=== PATIENT | female | born 1945 | race American Indian/Alaskan Native ===

== ENCOUNTER 2018-07-17 14:04 | Observation (INO) | payer OTHER ==
--- NOTE | 2018-07-17 17:18 | C.PDOC ---
History Of Present Illness Patient is a 72 year old female, with a PMHx of HTN, HLD, and appendectomy, who presents to the ED c/o intermittent dizziness described as "lightheadedness" for the past 4 days. Patient states that her dizziness is worse when she stands and has had multiple associated near-syncopal episodes. She denies any vertigo. She denies any constant dizziness. She notes she was told her by PMD Dr. Ryan to come to the ED for likely admission. She denies any vertigo, CP, leg swelling, history of blood clots, abdominal pain, back pain, fever, chills, rashes, neck stiffness, or head trauma. Time Seen by Provider: 07/17/18 17:17 Chief Complaint (Nursing): Medical Clearance History Per: Patient History/Exam Limitations: no limitations Onset/Duration Of Symptoms: Days (4) Current Symptoms Are (Timing): Still Present Recent travel outside of the [place]: No Additional History Per: Patient Past Medical History Reviewed: Historical Data, Nursing Documentation, Vital Signs Vital Signs: Last Vital Signs Temp 98 F 07/17/18 14:29 Pulse 81 07/17/18 14:29 Resp 18 07/17/18 14:29 BP 143/83 07/17/18 14:29 Pulse Ox 98 07/17/18 14:29 - Medical History PMH: HTN, Hypercholesterolemia Surgical History: Appendectomy Family History: States: No Known Family Hx - Social History Hx Alcohol Use: No Hx Substance Use: No - Immunization History Hx Tetanus Toxoid Vaccination: No Hx Influenza Vaccination: Yes Review Of Systems Constitutional: Negative for: Fever, Chills, Weakness, Malaise, Weight loss Eyes: Negative for: Pain, Vision Change, Conjunctivae Inflammation, Eyelid Inflammation ENT: Negative for: Ear Pain, Ear Discharge, Nose Pain, Nose Discharge, Nose Congestion, Mouth Pain, Mouth Swelling, Throat Pain Cardiovascular: Positive for: Light Headedness. Negative for: Chest Pain, Palpitations Respiratory: Negative for: Cough, Shortness of Breath, Pleuritic Pain Gastrointestinal: Negative for: Nausea, Abdominal Pain, Constipation, Melena Genitourinary: Negative for: Dysuria, Frequency, Incontinence, Hematuria Musculoskeletal: Negative for: Neck Pain (stiffness), Back Pain, Leg Pain (leg swelling) Skin: Negative for: Rash Neurological: Positive for: Dizziness, Other (near syncopal episodes ). Negative for: Weakness, Numbness, Incoordination, Confusion, Seizures, Altered Mental Status, Headache Physical Exam - Physical Exam Appears: Well, Non-toxic, No Acute Distress Skin: Warm, Dry Head: Normacephalic Eye(s): bilateral: Normal Inspection, PERRL, EOMI Ear(s): Bilateral: Normal Nose: Normal Oral Mucosa: Moist Tongue: No Other (trauma) Lips: Normal Appearing Throat: Normal, No Erythema Neck: Trachea Midline, Supple, Other (No meningeal signs- negative kernig's and brudzinskis) Lymphatic: Normal Exam, No Adenopathy Chest: Symmetrical Cardiovascular: Rhythm Regular, No Friction Rub Respiratory: No Rales, No Rhonchi, No Wheezing Gastrointestinal/Abdominal: Soft, No Tenderness, No Distention Back: Normal Inspection, No CVA Tenderness, No Vertebral Tenderness Extremity: Normal ROM, No Tenderness, No Pedal Edema, No Swelling Extremity: Bilateral: Normal Color And Temperature Pulses: Left Dorsalis Pedis: Normal, Right Dorsalis Pedis: Normal Neurological/Psych: Oriented x3, Normal Speech, Normal Cognition, Other (MAEW) ED Course And Treatment - Laboratory Results Result Diagrams: 07/17/18 17:58 07/17/18 17:58 ECG Rhythm: Sinus Rhythm Interpretation Of ECG: No-STEMI Rate From EC O2 Sat by Pulse Oximetry: 98 (on RA) Pulse Ox Interpretation: Normal - CT Scan/US CAT Head Other Rad Studies (CT/US): Read By Radiologist, Radiology Report Reviewed CT/US Interpretation: Date of service: 07/17/2018. PROCEDURE: CT HEAD WITHOUT CONTRAST. HISTORY: lightheaded, syncope. COMPARISON: None available. TECHNIQUE: Axial computed tomography images were obtained through the head/brain without intravenous contrast. Radiation dose: Total exam DLP = 1112.34 mGy-cm. This CT exam was performed using one or more of the following dose reduction techniques: Automated exposure control, adjustment of the mA and/or kV according to patient size, and/or use of iterative reconstruction technique. FINDINGS: HEMORRHAGE: No intracranial hemorrhage. BRAIN: No mass effect or edema. Intracranial atherosclerotic calcifications. The lugo-white matter differentiation appears intact. Please note that MRI with diffusion imaging is more sensitive in the detection of acute ischemic event. VENTRICLES: No hydrocephalus. CALVARIUM: Unremarkable. PARANASAL SINUSES: Unremarkable as visualized. No significant inflammatory changes. MASTOID AIR CELLS: Unremarkable as visualized. No inflammatory changes. OTHER FINDINGS: None. IMPRESSION: No acute intracranial pathology identified. Medical Decision Making Medical Decision Making: Patient is a 72 year old female, with a PMHx of HTN, HLD, and appendectomy, who presents to the ED c/o intermittent dizziness described as "lightheadedness" for the past 4 days. No meningeal signs. No apparent neuro abnl while pt is in bed. Normal finger to nose. No chest pain. No trauma or fall noted. No headache, nausea or vomiting. Plan: CAT Head EKG Labs CXR IV Fluids Urinalysis Cardiogenic vs. neurogenic EK, NSR, No stemi 2025 labs, imaging unremarkable paged Dr. Ryan for admission pt in [facility] 2047 appreciate consult w/ Dr. Ryan: to admit to his service Disposition - Disposition Disposition Time: 20:26 Condition: STABLE Forms: [facility] (Ethiopian) - Clinical Impression Clinical Impression: Syncope - Scribe Statement The provider has reviewed the documentation as recorded by the Graciela Atwood All medical record entries made by the Graciela were at my direction and personally dictated by me. I have reviewed the chart and agree that the record accurately reflects my personal performance of the history, physical exam, medical decision making, and the department course for this patient. I have also personally directed, reviewed, and agree with the discharge instructions and disposition.
[2018-07-17] MEDS: Sodium Chloride 0.9% 1,000 ML IV SCH (17:58)
[2018-07-17] MEDS ORDERED: Sodium Chloride 0.9% 1,000 ML ONE (17:59)
[2018-07-17 18:03] LABS: BASO % 1.1 % (0.0-2.0); EOS # 0.1 K/uL (0.0-0.7); EOS % 1.4 % (0.0-4.0); HEMOGLOBIN 12.3 g/dL (11.0-16.0); LYMPH # 1.6 K/uL (1.0-4.3); LYMPH % 41.1 % (20.0-40.0); MEAN CORPUSCULAR HEMOGLOBIN 31.6 pg (27.0-31.0); MEAN PLATELET VOLUME 9.5 fL (7.2-11.7); MONO # 0.4 K/uL (0.0-0.8); MONO % 10.3 % (0.0-10.0); NEUT # 1.8 K/uL (1.8-7.0); NEUT % 46.1 % (50.0-75.0); NRBC % 0.2 % (0.0-2.0); RBC 3.89 Mil/uL (3.80-5.20); RED CELL DISTRIBUTION WIDTH 14.7 % (11.5-14.5)
[2018-07-17 18:22] LABS: ALB/GLOB RATIO 1.4 (1.0-2.1); ALBUMIN 4.3 g/dL (3.5-5.0); ALT/SGPT 17 U/L (9-52); AST/SGOT 31 U/L (14-36); BLOOD UREA NITROGEN 12 mg/dL (7-17); CALCIUM 9.6 mg/dl (8.6-10.4); GFR NON-AFRICAN AMERICAN > 60
--- NOTE | 2018-07-17 18:28 | CT ---
Date of service: 07/17/2018 PROCEDURE: CT HEAD WITHOUT CONTRAST. HISTORY: lightheaded, syncope COMPARISON: None available. TECHNIQUE: Axial computed tomography images were obtained through the head/brain without intravenous contrast. Radiation dose: Total exam DLP = 1112.34 mGy-cm. This CT exam was performed using one or more of the following dose reduction techniques: Automated exposure control, adjustment of the mA and/or kV according to patient size, and/or use of iterative reconstruction technique. FINDINGS: HEMORRHAGE: No intracranial hemorrhage. BRAIN: No mass effect or edema. Intracranial atherosclerotic calcifications. The lugo-white matter differentiation appears intact. Please note that MRI with diffusion imaging is more sensitive in the detection of acute ischemic event. VENTRICLES: No hydrocephalus. CALVARIUM: Unremarkable. PARANASAL SINUSES: Unremarkable as visualized. No significant inflammatory changes. MASTOID AIR CELLS: Unremarkable as visualized. No inflammatory changes. OTHER FINDINGS: None. IMPRESSION: No acute intracranial pathology identified.
[2018-07-17 19:58] LABS: SQUAMOUS EPITHIAL 11 /hpf (0-5); URINE BILIRUBIN NEGATIVE (NEGATIVE); URINE BLOOD NEGATIVE (NEGATIVE); URINE CLARITY Hazy (Clear); URINE COLOR Yellow (YELLOW); URINE GLUCOSE (UA) NORMAL (Normal); URINE LEUKOCYTE ESTERASE NEG Leu/uL (Negative); URINE PROTEIN NEGATIVE (NEGATIVE)
--- NOTE | 2018-07-17 22:39 | CP.PCM.HP ---
Present on Admission - Present on Admission Any Indicators Present on Admission: No Past Patient History - Past Social History Smoking Status: Never Smoked - CARDIAC Hx Hypercholesterolemia: Yes Hx Hypertension: Yes - NEUROLOGICAL Hx Neurological Disorder: Yes Hx Vertigo: Yes - PSYCHIATRIC Hx Substance Use: No - SURGICAL HISTORY Hx Appendectomy: Yes Meds Allergies/Adverse Reactions: Allergies Allergy/AdvReac Type Severity Reaction Status Date / Time No Known Allergies Allergy Verified 07/17/18 14:36 Results - Vital Signs Recent Vital Signs: Last Vital Signs Temp 98 F 07/17/18 14:29 Pulse 81 07/17/18 14:29 Resp 18 07/17/18 14:29 BP 143/83 07/17/18 14:29 Pulse Ox 98 07/17/18 20:48 - Labs Result Diagrams: 07/17/18 17:58 07/17/18 17:58 Labs: Laboratory Results - last 24 hr 07/17/18 07/17/18 07/17/18 17:58 17:58 19:11 WBC 4.0 L RBC 3.89 Hgb 12.3 Hct 36.1 MCV 93.0 MCH 31.6 H MCHC 34.0 RDW 14.7 H Plt Count 183 MPV 9.5 Neut % (Auto) 46.1 L Lymph % (Auto) 41.[address] [place] % (Auto) 10.3 H Eos % (Auto) 1.4 Baso % (Auto) 1.1 Neut # (Auto) 1.8 Lymph # (Auto) 1.6 [place] # (Auto) 0.4 Eos # (Auto) 0.1 Baso # (Auto) 0.0 Sodium 137 Potassium 3.9 Chloride 103 Carbon Dioxide 27 Anion Gap 11 BUN 12 Creatinine 0.9 Est GFR ( Amer) > 60 Est GFR (Non-Af Amer) > 60 Random Glucose 115 H Calcium 9.6 Total Bilirubin 0.4 AST 31 ALT 17 Alkaline Phosphatase 71 Troponin I < 0.0120 Total Protein 7.2 Albumin 4.3 Globulin 3.0 Albumin/Globulin Ratio 1.4 Urine Color Yellow Urine Clarity Hazy Urine pH 6.0 Ur Specific [place] 1.021 Urine Protein Negative Urine Glucose (UA) Normal Urine Ketones Negative Urine Blood Negative Urine Nitrate Negative Urine Bilirubin Negative Urine Urobilinogen 2.0 H Ur Leukocyte Esterase Neg Urine WBC (Auto) 2 Urine RBC (Auto) 3 Ur Squamous Epith Cells 11 H
[2018-07-18] MEDS: Sodium Chloride 0.9% 1,000 ML IV SCH ×2 (04:50→15:59)
[2018-07-18 05:55] LABS: CK-MB 1.02 ng/mL (0.0-3.38)
--- NOTE | 2018-07-18 07:15 | CP.PCM.CON ---
History of Present Illness - History of Present Illness History of Present Illness: CONSULTATION DICTATED RECURRENT LIGHTHEADED AND [place]AXIA R/O CENTRAL PATHOLOGY BRAIN VS NECK MRI BRAIN CATOTID/EEG ANTIPLATELETS FALL PRECATION Past Patient History - Past Social History Smoking Status: Never Smoked - CARDIAC Hx Hypercholesterolemia: Yes Hx Hypertension: Yes - NEUROLOGICAL Hx Neurological Disorder: Yes Hx Vertigo: Yes - PSYCHIATRIC Hx Substance Use: No - SURGICAL HISTORY Hx Appendectomy: Yes Meds Allergies/Adverse Reactions: Allergies Allergy/AdvReac Type Severity Reaction Status Date / Time No Known Allergies Allergy Verified 07/17/18 14:36 - Medications Medications: Current Medications Clopidogrel Bisulfate (Plavix) 75 mg PO DAILY [facility] Enoxaparin Sodium (Lovenox) 40 mg SC DAILY [facility] Sodium Chloride (Sodium Chloride 0.9%) 1,000 mls @ 100 mls/hr IV .Q10H MICHELLE Last Admin: 07/18/18 04:50 Dose: 100 mls/hr Losartan Potassium (Cozaar) 50 mg PO DAILY [facility] Meclizine HCl (Antivert) 25 mg PO Q8 MICHELLE Rosuvastatin Calcium (Crestor) 10 mg PO HS [facility] Results - Vital Signs Recent Vital Signs: Last Vital Signs Temp 98 F 07/17/18 14:29 Pulse 80 07/18/18 04:34 Resp 14 07/18/18 04:34 BP 154/74 H 07/18/18 04:34 Pulse Ox 100 07/18/18 04:34 - Labs Result Diagrams: 07/17/18 17:58 07/17/18 17:58 Labs: Laboratory Results - last 24 hr 07/17/18 07/17/18 07/17/18 17:58 17:58 19:11 WBC 4.0 L RBC 3.89 Hgb 12.3 Hct 36.1 MCV 93.0 MCH 31.6 H MCHC 34.0 RDW 14.7 H Plt Count 183 MPV 9.5 Neut % (Auto) 46.1 L Lymph % (Auto) 41.1 H [place] % (Auto) 10.3 H Eos % (Auto) 1.4 Baso % (Auto) 1.1 Neut # (Auto) 1.8 Lymph # (Auto) 1.6 [place] # (Auto) 0.4 Eos # (Auto) 0.1 Baso # (Auto) 0.0 Sodium 137 Potassium 3.9 Chloride 103 Carbon Dioxide 27 Anion Gap 11 BUN 12 Creatinine 0.9 Est GFR ( Amer) > 60 Est GFR (Non-Af Amer) > 60 Random Glucose 115 H Calcium 9.6 Total Bilirubin 0.4 AST 31 ALT 17 Alkaline Phosphatase 71 Total Creatine Kinase CK-MB (Mass) Troponin I < 0.0120 Total Protein 7.2 Albumin 4.3 Globulin 3.0 Albumin/Globulin Ratio 1.4 Urine Color Yellow Urine Clarity Hazy Urine pH 6.0 Ur Specific [place] 1.021 Urine Protein Negative Urine Glucose (UA) Normal Urine Ketones Negative Urine Blood Negative Urine Nitrate Negative Urine Bilirubin Negative Urine Urobilinogen 2.0 H Ur Leukocyte Esterase Neg Urine WBC (Auto) 2 Urine RBC (Auto) 3 Ur Squamous Epith Cells 11 H 07/18/18 05:27 WBC RBC Hgb Hct MCV MCH MCHC RDW Plt Count MPV Neut % (Auto) Lymph % (Auto) [place] % (Auto) Eos % (Auto) Baso % (Auto) Neut # (Auto) Lymph # (Auto) [place] # (Auto) Eos # (Auto) Baso # (Auto) Sodium Potassium Chloride Carbon Dioxide Anion Gap BUN Creatinine Est GFR ( Amer) Est GFR (Non-Af Amer) Random Glucose Calcium Total Bilirubin AST ALT Alkaline Phosphatase Total Creatine Kinase 108 CK-MB (Mass) 1.02 Troponin I < 0.0120 Total Protein Albumin Globulin Albumin/Globulin Ratio Urine Color Urine Clarity Urine pH Ur Specific [place] Urine Protein Urine Glucose (UA) Urine Ketones Urine Blood Urine Nitrate Urine Bilirubin Urine Urobilinogen Ur Leukocyte Esterase Urine WBC (Auto) Urine RBC (Auto) Ur Squamous Epith Cells
[2018-07-18 08:29] LABS: FREE T4 0.86 ng/dL (0.78-2.19)
--- NOTE | 2018-07-18 08:40 | HP ---
CHIEF COMPLAINT: She has syncope. HISTORY OF PRESENT ILLNESS: This is a 72-year-old female, well known to me with history of hypertension, hyperlipidemia, osteoarthritis, varicose vein, and she has chronic benign positional vertigo, and the patient is compliant with her diet, medication, and followup. For the last three days every morning when she gets out of the bed, she feels dizziness which she describes as lightheadedness and along with that she feels like falling, and this morning, she had a real fall, and she was giddy, dizzy, but she did not completely lose her consciousness. She denies any seizure like activity. She denies any history of tongue bites, urinary or fecal incontinence. She denies any nausea, vomiting, or blurring of vision. She denies any history of dysuria, hematuria, or pyuria. She denies any history of polyuria, polydipsia, polyphagia. She denies any history of cough, sore throat, or runny nose. There is no history of trauma, fall, loss of consciousness. There is no history of seizure like activity. She denies any sneezing, itchy eyes. She has bilateral knee pain, hip pain, and has had back pains. There is no history of skin rash. ALLERGIES: UNKNOWN ALLERGIES. CURRENT MEDICATIONS: She is on Benicar and Pravachol. SOCIAL HISTORY: Nonsmoker, non-EtOH user. PHYSICAL EXAMINATION: GENERAL: An elderly female, in no acute distress. VITAL SIGNS: Blood pressure 142/83, pulse 81, respiratory rate 18, temperature 98. SKIN: Warm. Good turgor. No bruises. No purpura. No petechiae. No ecchymosis. HEENT: Atraumatic, normocephalic. Negative pallor. Negative jaundice. Extraocular movements are intact. NECK: Supple. No JVD. No lymph node. No thyromegaly. CHEST WALL: Bilateral symmetrical expansion. No tenderness. No deformity. LUNGS: Clear. No rales. No rhonchi. CARDIOVASCULAR SYSTEM: PMI not localized. S1 and S2, regular. ABDOMEN: Soft, nontender. Bowel sounds are positive. RECTAL: No masses. No bleed. EXTREMITIES: No clubbing, cyanosis or edema. CENTRAL NERVOUS SYSTEM: Alert and oriented x3. Cranial nerves II through XII are normal. Power 5/5 x4. Plantars are downgoing. ASSESSMENT: 1. Dizziness, near-syncope. Rule out worsening benign positional vertigo versus cardiac arrhythmia. Rule out . 2. Hypertension. 3. Hyperlipidemia. PLAN: Admit. Detailed orders are written. Seen and examined. Josh Ryan MD
[2018-07-18 09:11] LABS: FOLATE 13.9 ng/mL
[2018-07-18] MEDS: Enoxaparin 40 mg Syringe SC SCH (10:20)
--- NOTE | 2018-07-18 13:44 | VASCLAB ---
Date of service: 07/18/2018 PROCEDURE: Carotid Duplex Exam. HISTORY: Near Syncope COMPARISON: None available. TECHNIQUE: Grayscale and duplex Doppler evaluation of the cervical carotid and vertebral arteries were performed. The common carotid, carotid bifurcations and cervical Internal Carotid Artery (ICA) and proximal External Carotid Artery (ECA) were evaluated. The vertebral arteries were evaluated for gross patency and flow direction. Report prepared by AYLEEN Carias FINDINGS: RIGHT CAROTID ARTERIES: 1. Common Carotid Artery: No significant focal plaque formation of the right common carotid artery. Maximum Peak Systolic velocity: 139 cm/sec: End-diastolic velocity 23 cm/sec. 2. Carotid Bifurcation: plaque formation. Maximum Peak Systolic velocity: 70 cm/sec: End-diastolic velocity 0 cm/sec. 3. Internal Carotid Artery: Plaque description: 3.1. Proximal Segment: Peak systolic velocity 114 cm/sec: End-diastolic velocity 16 cm/sec - % stenosis 0-15% 3.2. Middle Segment: Peak systolic velocity 89 cm/sec: End-diastolic velocity 19 cm/sec - % stenosis 0-15% 3.3. Distal Segment: Peak systolic velocity 72 cm/sec: End-diastolic velocity 16 cm/sec - % stenosis 0-15% 4. External Carotid Artery: No significant focal plaque formation. Peak systolic velocity 109 cm/sec 5. ICA/CCA Ratio: 1.1 LEFT CAROTID ARTERIES: 1. Common Carotid Artery: No significant focal plaque formation of the left common carotid artery. Maximum Peak Systolic velocity: 111 cm/sec: End-diastolic velocity 25 cm/sec. 2. Carotid Bifurcation: plaque formation. Maximum Peak Systolic velocity: 64 cm/sec: End-diastolic velocity 14 cm/sec. 3. Internal Carotid Artery: Plaque description: 3.1. Proximal Segment: Peak systolic velocity 125 cm/sec: End-diastolic velocity 36 cm/sec - % stenosis 0-15% 3.2. Middle Segment: Peak systolic velocity 114 cm/sec: End-diastolic velocity 39 cm/sec - % stenosis 0-15% 3.3. Distal Segment: Peak systolic velocity 159 cm/sec: End-diastolic velocity 42 cm/sec - % stenosis 0-15% 4. External Carotid Artery: No significant focal plaque formation. Peak systolic velocity 103 cm/sec 5. ICA/CCA Ratio: 1.7 VERTEBRAL ARTERIES: 1. Right Vertebral Artery: The right vertebral artery flow direction is antegrade. 2. Left Vertebral Artery: The left vertebral artery flow direction is antegrade. OTHER FINDINGS: 1. Right Brachial Blood pressure: 150/80 mmHg. 2. Left Brachial Blood pressure: 170/90 mmHg. IMPRESSION: RIGHT: Duplex scan does not suggest hemodynamically significant stenosis of the right extracranial carotid arteries. LEFT: Duplex scan does not suggest hemodynamically significant stenosis of the left extracranial carotid arteries.
--- NOTE | 2018-07-18 14:06 | MRI ---
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 TECHNIQUE: Multiplanar, multisequence MR images of the brain were obtained without intravenous contrast enhancement. FINDINGS: HEMORRHAGE: None DWI: No evidence of an acute or early subacute infarction. BRAIN PARENCHYMA: There are mild chronic microangiopathic changes. There is no mass, mass effect or abnormal extra-axial fluid collection. There is no territorial infarction. The midline sagittal structures are normal. VENTRICLES: There is mild age-related global parenchymal volume loss and proportionate enlargement of the ventricles and cortical sulci. CRANIUM: There is normal bone marrow signal pattern. ORBITS: Grossly unremarkable. PARANASAL SINUSES/MASTOIDS: Predominantly clear. VASCULAR SYSTEM: There are normal signal voids in the larger intracranial arteries. OTHER FINDINGS: None. IMPRESSION: No acute intracranial abnormality. Mild chronic microangiopathic changes and mild age-related global parenchymal volume loss.
--- NOTE | 2018-07-18 15:39 | RAD ---
Date of service: 07/17/2018 HISTORY: lightheaded COMPARISON: No prior. TECHNIQUE: Chest PA and lateral views FINDINGS: LUNGS: No active pulmonary disease. PLEURA: No significant pleural effusion identified. No pneumothorax apparent. CARDIOVASCULAR: No aortic atherosclerotic calcification present. Normal cardiac size. No significant appearing pulmonary venous congestion. OSSEOUS STRUCTURES: Mild thoracic spondylosis. VISUALIZED UPPER ABDOMEN: Normal. OTHER FINDINGS: None. IMPRESSION: No active disease. Other findings as above.
--- NOTE | 2018-07-18 19:13 | CON ---
DATE: 07/18/2018 ATTENDING PHYSICIAN: Josh Ryan MD. LOCATION: The patient's room # Emergency Room, bed A. TIME OF EVALUATION: 7 o'clock am. REASON FOR CONSULTATION: Near syncopal attack. CHIEF COMPLAINT: The patient was brought in as per the advice from her PMD, history of recurrent dizziness and tendency to fall. From neurological point I was called into evaluate her for further management. HISTORY OF PRESENT ILLNESS: Ms. Sinai Haas is a right-handed female presenting with about 2-3 years' history of using walker to stabilize her gait due to her arthritis. For the last 3 days she has been suffering from recurrent lightheadedness. She describes that whenever she wakes up. The dizziness is more described as lightheadedness which last for about 3 hours. Associating with losing her balance. No history of fall from this. No history of nausea or vomiting. No history of recent viral illness or flu. No history of hearing problem. No history of tinnitus. No history of double vision. No history of speech impairment or any focal weakness related to this problem. She never had this problem in the past like this. PAST MEDICAL HISTORY: Dyslipidemia, hypertension, arthritis. ALLERGIES: NO KNOWN ALLERGIES. PERSONAL HISTORY: Denies smoking or alcohol use. REVIEW OF SYSTEMS: 12-point system being reviewed. From neuro, recurrent near syncopal attack. MEDICATIONS: Cozaar, Crestor, Lovenox and IV fluids. PHYSICAL EXAMINATION: VITAL SIGNS: Blood pressure 154/74, mean artery pressure of 100, respiratory rate 18, temperature afebrile, pulse rate 80 regular. NECK: Supple. No carotid bruits. HEART: Sounds regular. CHEST: Fair air entry. EXTREMITIES: Distal muscle atrophy noted, more pronounced in the feet than her hands. NEUROLOGIC EXAMINATION: Mental status examination: She is awake, alert, oriented to person, place and time. Speech is clear. Naming, repetition, fluency, comprehension all within normal. Cranial nerve examination, visual field intact. Pupils reactive to light. Extraocular movement normal. No nystagmus. No facial sensory deficit. Mild facial asymmetry manifesting as the right nasolabial fold. Hearing is normal. Tongue is midline. Good gag. Motor examination: On outstretched hand with eyes closed, no drift noted. Power is symmetric on either side. Deep tendon reflexes biceps, brachialis, triceps, knee and ankle all are absent. Plantars are upgoing right more than her left side. Mildly dysmetria noted on the right side, which could be probably related to her IV infusion. Gait: Deferred at this time. CONCLUSION: On reviewing her history in the medical records and from her history this recurrent episode of lightheadedness associating with losing her balance probably associating with posterior cerebral artery ischemic process. However, considering her frequent falls in the past and the neck discomfort, cervical disc associating myelopathy should be ruled out. She also presenting with mildly distal sensory motor neuropathy. Workup CT of the head reviewed, no acute pathology is noted. Blood workup, WBC 4, hemoglobin 12.3, hematocrit 36.1, platelet 183. Sodium 137, potassium 3.9, chloride 103, bicarbonate 27, BUN 12, creatinine 0.9, GFR more than 60, glucose 115, bilirubin 0.4, AST 31, ALT 17. Urinalysis shows 2+ urobilinogen. RECOMMENDATIONS: 1. 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 2. EEG to rule out any paroxysmal activities. 3. Carotid Doppler to rule out any significant stenosis. 4. Blood workup as per the order. 5. I added Plavix associating with statin and angiotensin receptor blockers. The patient should be kept on fall precaution and physical therapy should be initiated as early as possible. The patient will be followed closely with you. Elias Drew MD
--- NOTE | 2018-07-18 22:58 | CP.PCM.CON ---
History of Present Illness - History of Present Illness History of Present Illness: CC: Dizziness and near syncope Patient is a 72 year old female, with a PMHx of HTN, HLD, and appendectomy, who presents to the ED c/o intermittent dizziness described as "lightheadedness" for the past 4 days. Patient states that her dizziness is worse when she stands and has had multiple associated near-syncopal episodes. She denies any vertigo. She denies any constant dizziness. She notes she was told her by PMD Dr. Ryan to come to the ED for likely admission. She denies any vertigo, CP, leg swelling, history of blood clots, abdominal pain, back pain, fever, chills, rashes, neck stiffness, or head trauma. Chief Complaint (Nursing): Medical Clearance History Per: Patient History/Exam Limitations: no limitations Onset/Duration Of Symptoms: Days (4) Current Symptoms Are (Timing): Still Present Recent travel outside of the [place]: No Additional History Per: Patient - Medical History PMH: HTN, Hypercholesterolemia Surgical History: Appendectomy Family History: States: No Known Family Hx - Social History Hx Alcohol Use: No Hx Substance Use: No - Immunization History Hx Tetanus Toxoid Vaccination: No Hx Influenza Vaccination: Yes Review Of Systems Constitutional: Negative for: Fever, Chills, Weakness, Malaise, Weight loss Eyes: Negative for: Pain, Vision Change, Conjunctivae Inflammation, Eyelid Inflammation ENT: Negative for: Ear Pain, Ear Discharge, Nose Pain, Nose Discharge, Nose Congestion, Mouth Pain, Mouth Swelling, Throat Pain Cardiovascular: Positive for: Light Headedness. Negative for: Chest Pain, Palpitations Respiratory: Negative for: Cough, Shortness of Breath, Pleuritic Pain Gastrointestinal: Negative for: Nausea, Abdominal Pain, Constipation, Melena Genitourinary: Negative for: Dysuria, Frequency, Incontinence, Hematuria Musculoskeletal: Negative for: Neck Pain (stiffness), Back Pain, Leg Pain (leg swelling) Skin: Negative for: Rash Neurological: Positive for: Dizziness, Other (near syncopal episodes ). Negative for: Weakness, Numbness, Incoordination, Confusion, Seizures, Altered Mental Status, Headache Physical Exam - Physical Exam Appears: Well, Non-toxic, No Acute Distress Skin: Warm, Dry Head: Normacephalic Eye(s): bilateral: Normal Inspection, PERRL, EOMI Ear(s): Bilateral: Normal Nose: Normal Oral Mucosa: Moist Tongue: No Other (trauma) Lips: Normal Appearing Throat: Normal, No Erythema Neck: Trachea Midline, Supple, Other (No meningeal signs- negative kernig's and brudzinskis) Lymphatic: Normal Exam, No Adenopathy Chest: Symmetrical Cardiovascular: Rhythm Regular, No Friction Rub Respiratory: No Rales, No Rhonchi, No Wheezing Gastrointestinal/Abdominal: Soft, No Tenderness, No Distention Back: Normal Inspection, No CVA Tenderness, No Vertebral Tenderness Extremity: Normal ROM, No Tenderness, No Pedal Edema, No Swelling Extremity: Bilateral: Normal Color And Temperature Pulses: Left Dorsalis Pedis: Normal, Right Dorsalis Pedis: Normal Neurological/Psych: Oriented x3, Normal Speech, Normal Cognition, Other (MAEW) Past Patient History - Past Medical History & Family History Past Medical History?: Yes - Past Social History Smoking Status: Never Smoked - CARDIAC Hx Cardiac Disorders: No Hx Angina: No Hx Atrial Fibrillation: No Hx Cardia Arrhythmia: No Hx Circulatory Problems: No Hx Congestive Heart Failure: No Hx Heart Attack: No Hx Heart Murmur: No Hx Heart Transplant: No Hx Hypercholesterolemia: Yes Hx Hypertension: Yes Hx Hypotension: No Hx Internal Defibrillator: No Hx Mitral Valve Prolapse: No Hx Pacemaker: No Hx Peripheral Edema: No Hx Peripheral Vascular Disease: No - PULMONARY Hx Respiratory Disorders: No Hx Asthma: No Hx Bronchitis: No Hx Chronic Obstructive Pulmonary Disease (COPD): No Hx Emphysema: No Hx Lung Cancer: No Hx Pneumonia: No Hx Pulmonary Edema: No Hx Pulmonary Embolism: No Hx Respiratory Aspiration: No Hx Respiratory Tract Infection: No Hx Sleep Apnea: No Hx Tuberculosis: No - NEUROLOGICAL Hx Neurological Disorder: Yes Hx Alzheimer's Disease: No HX Cerebrovascular Accident: No Hx Dementia: No Hx Dizziness: Yes Hx Meningitis: No Hx Migraine: No Hx Multiple Sclerosis: No Hx Paralysis: No Hx Parkinson's Disease: No Hx Seizures: No Hx Syncope: No Hx Transient Ischemic Attacks (TIA): No Hx Vertigo: Yes - HEENT Hx HEENT Problems: No Hx Blind: No Hx Cataracts: No Hx Deafness: No Hx Difficulty Chewing: No Hx Epistaxis: No Hx Glaucoma: No Hx Macular Degeneration: No Hx Sinusitis: No - RENAL Hx Chronic Kidney Disease: No Hx Dialysis: No Hx Kidney Stones: No Hx Neurogenic Bladder: No Hx Pyelonephritis: No Hx Renal (Kidney) Cancer: No Hx Renal Failure: No - ENDOCRINE/METABOLIC Hx Endocrine Disorders: No Hx Adrenal Cancer: No Hx Diabetes Insipidus: No Hx Diabetes Mellitus Type 1: No Hx Diabetes Mellitus Type 2: No Hx Hyperthyroidism: No Hx Hypothyroidism: No Hx Systemic Lupus Erythematosus: No - HEMATOLOGICAL/ONCOLOGICAL Hx Blood Disorders: No Hx AIDS: No Hx Anemia: No Hx Blood Transfusions: No Hx Blood Transfusion Reaction: No Hx Bruising: No Hx Cancer: No Hx Chemotherapy: No Hx Cirrhosis: No Hx Gum Bleeding: No Hx Hemophilia: No Hx Hepatitis A: No Hx Hepatitis B: No Hx Hepatitis C: No Hx Human Immunodeficiency Virus (HIV): No Hx Leukemia: No Hx Metastesis: No Hx Shingles: No Hx Sickle Cell Disease: No Hx Unexplained Bleeding: No Hx von Willebrand's Disease: No - INTEGUMENTARY Hx Dermatological Problems: No Hx Basil Cell: No Hx Mcarthur: No Hx Cellulitis: No Hx Eczema: No Hx Melanoma: No Hx Psoriasis: No Hx Squamous Cell: No - MUSCULOSKELETAL/RHEUMATOLOGICAL Hx Musculoskeletal Disorders: Yes Hx Arthritis: Yes Hx Back Pain: No Hx Degenerative Joint Disease: No Hx Falls: No Hx Fractures: No Hx Gout: No Hx Herniated Disk: No Hx Myasthenia Gravis: No Hx Osteoarthritis: No Hx Osteomyelitis: No Hx Osteoporosis: No Hx Rhabdomyolysis: No Hx Rheumatoid Arthritis: No Hx Spinal Stenosis: No Hx Unsteady Gait: No - GASTROINTESTINAL Hx Gastrointestinal Disorders: No Hx Bowel Surgery: No Hx Clostridium Difficile: No Hx Colitis: No Hx Colostomy: No Hx Constipation: No Hx Crohn's Disease: No Hx Diarrhea: No Hx Diverticulitis: No Hx Esophageal Varices: No Hx Fatty Liver Disease: No Hx Gall Bladder Disease: No Hx Gastritis: No Hx Gastroesophageal Reflux: No Hx Hemorrhoids: No Hx Ileostomy: No Hx Irritable Bowel: No Hx Liver Failure: No Hx Nausea: No Hx Pancreatitis: No HX Swallowing Problems: No Hx Ulcer: No Hx Vomiting: No - GENITOURINARY/GYNECOLOGICAL Hx Genitourinary Disorders: No Hx Bladder Cancer: No Hx Bladder Stone: No Hx Cervical Cancer: No Hx Hematuria: No Hx Incontinence: No Hx Ovarian Cancer: No Hx Postmenopausal Bleeding: No Hx Reproductive Disorders: No Hx Sexually Transmitted Disorders: No Hx Uterine Cancer: No Hx Urinary Tract Infection: No - PSYCHIATRIC Hx Psychophysiologic Disorder: No Hx Anxiety: No Hx Bipolar Disorder: No Hx Depression: No Hx Emotional Abuse: No Hx Hallucinations: No Hx Panic Symptoms: No Hx Paranoia: No Hx Post Traumatic Stress Disorder: No Hx Psychosis: No Hx Physical Abuse: No Hx Schizophrenia: No Hx Sexual Abuse: No Hx Substance Use: No - SURGICAL HISTORY Hx Surgeries: No Hx Abdominal Aortic Aneurysm Repair: No Hx Amputation: No Hx Angiogram: No Hx Angioplasty: No Hx Appendectomy: Yes Hx Arteriovenous Shunt: No Hx Arthroscopy: No Hx Bile Duct Stent: No Hx Breast Biopsy: No Hx Cataract Extraction: No Hx Cardiac Catheterization: No Hx Carotid Endarterectomy: No Hx Section: No Hx Cholecystectomy: No Hx Coronary Artery Bypass Graft: No Hx Coronary Stent: No Hx Dilation and Curettage: No Hx Eye Surgery: No Hx Femoral-Popliteal Bypass Graft: No Hx Gastric Bypass Surgery: No Hx Herniorrhaphy: No Hx Hysterectomy: No Hx Joint Replacement: No Hx Kidney Transplant: No Hx Liver Transplant: No Hx Mastectomy: No Hx Musculoskeletal Surgery: No Hx Open Heart Surgery: No Hx Open Reduction Internal Fixation: No Hx Orthopedic Surgery: No Hx Parathyroidectomy: No Hx Penile Implant: No Hx Pulmonary Surgery: No Hx Splenectomy: No Hx Thyroidectomy: No Hx Tonsillectomy: No Hx Tubal Ligation: No Hx Valve Replacement: No Hx Vascular Surgery: No - ANESTHESIA Hx Anesthesia: Yes Hx Anesthesia Reactions: No Hx Malignant Hyperthermia: No Has any member of the family had a problem w/ anesthesia?: No Meds Allergies/Adverse Reactions: Allergies Allergy/AdvReac Type Severity Reaction Status Date / Time No Known Allergies Allergy Verified 07/17/18 14:36 - Medications Medications: Current Medications Clopidogrel Bisulfate (Plavix) 75 mg PO DAILY [facility] Last Admin: 07/18/18 10:20 Dose: 75 mg Enoxaparin Sodium (Lovenox) 40 mg SC DAILY [facility] Last Admin: 07/18/18 10:20 Dose: 40 mg Sodium Chloride (Sodium Chloride 0.9%) 1,000 mls @ 100 mls/hr IV .Q10H [facility] Last Admin: 07/18/18 15:59 Dose: Not Given Losartan Potassium (Cozaar) 50 mg PO DAILY [facility] Last Admin: 07/18/18 10:19 Dose: 50 mg Meclizine HCl (Antivert) 25 mg PO Q8 [facility] Last Admin: 07/18/18 15:47 Dose: 25 mg Rosuvastatin Calcium (Crestor) 10 mg PO HS [facility] Results - Vital Signs Recent Vital Signs: Last Vital Signs Temp 97.7 F 07/18/18 07:49 Pulse 64 07/18/18 07:49 Resp 22 07/18/18 07:49 BP 121/63 07/18/18 07:49 Pulse Ox 99 07/18/18 07:49 - Labs Result Diagrams: 07/17/18 17:58 07/17/18 17:58 Labs: Laboratory Results - last 24 hr 07/18/18 07/18/18 07/18/18 05:27 07:28 07:28 Hemoglobin A1c 5.8 Total Creatine Kinase 108 CK-MB (Mass) 1.02 Troponin I < 0.0120 Triglycerides 106 Cholesterol 209 H LDL Cholesterol Direct 140 H HDL Cholesterol 54 Vitamin B12 410 Folate 13.9 Homocysteine 10.4 Free T4 TSH 3rd Generation 07/18/18 07:28 Hemoglobin A1c Total Creatine Kinase CK-MB (Mass) Troponin I Triglycerides Cholesterol LDL Cholesterol Direct HDL Cholesterol Vitamin B12 Folate Homocysteine Free T4 0.86 TSH 3rd Generation 2.29 Assessment & Plan - Assessment and Plan (Free Text) Assessment: 72 F with hx of HTN and hyperlipidemia admitted for dizziness ECHO and carotids pending Neuro eval in progress
--- NOTE | 2018-07-18 23:56 | CP.PCM.PN ---
Subjective - Date & Time of Evaluation Date of Evaluation: 07/18/18 Time of Evaluation: 09:00 - Subjective Subjective: dictated Objective - Vital Signs/Intake and Output Vital Signs (last 24 hours): Temp Pulse Resp BP Pulse Ox 97.7 F 64 22 121/63 99 07/18/18 07:49 07/18/18 07:49 07/18/18 07:49 07/18/18 07:49 07/18/18 07:49 - Medications Medications: Current Medications Clopidogrel Bisulfate (Plavix) 75 mg PO DAILY [facility] Last Admin: 07/18/18 10:20 Dose: 75 mg Enoxaparin Sodium (Lovenox) 40 mg SC DAILY [facility] Last Admin: 07/18/18 10:20 Dose: 40 mg Sodium Chloride (Sodium Chloride 0.9%) 1,000 mls @ 100 mls/hr IV .Q10H [facility] Last Admin: 07/18/18 15:59 Dose: Not Given Losartan Potassium (Cozaar) 50 mg PO DAILY [facility] Last Admin: 07/18/18 10:19 Dose: 50 mg Meclizine HCl (Antivert) 25 mg PO Q8 [facility] Last Admin: 07/18/18 15:47 Dose: 25 mg Rosuvastatin Calcium (Crestor) 10 mg PO HS [facility] - Labs Labs: 07/17/18 17:58 07/17/18 17:58
[2018-07-19] MEDS: Sodium Chloride 0.9% 1,000 ML IV SCH ×2 (00:06→09:00)
[2018-07-19] MEDS: Enoxaparin 40 mg Syringe SC SCH (09:27)
--- NOTE | 2018-07-19 10:29 | EEG ---
DATE: 07/18/2018 This is a 16-channel electroencephalogram of awake and drowsy adult. During the study, photic stimulation was performed. Hyperventilation was not performed. The resting electroencephalogram consists of 30 to 40 microvolt, 9 to 11 Hz alpha activities seen at posterior parietal and occipital leads. Anteriorly fast activities superimposed with 2 to 3 Hz of delta activities seen at frontal and central leads. Most of the time, the background alpha activity is continuously maintained. Some movement artifact contaminated the background rhythm intermittently. The photic stimulation did not evoke driving response noted at 2 to 20 Hz. There is abrupt slow activities noted over the bilateral temporal leads without any clinical significance. IMPRESSION: This is a normal electroencephalogram of awake and drowsy adult. During the study, neither electroencephalographic paroxysmal activities nor focal slowing noted. Elias Drew MD
--- NOTE | 2018-07-19 11:45 | CP.PCM.PN ---
Subjective - Date & Time of Evaluation Date of Evaluation: 07/19/18 Time of Evaluation: 11:44 - Subjective Subjective: PATIENT SEEN AND EXAMINED AT THE BEDSIDE Objective - Vital Signs/Intake and Output Vital Signs (last 24 hours): Temp Pulse Resp BP Pulse Ox 97.6 F 64 22 121/63 99 07/19/18 07:36 07/18/18 07:49 07/18/18 07:49 07/18/18 07:49 07/18/18 07:49 Intake and Output: 07/19/18 07/19/18 06:59 18:59 Intake Total 200 100 Balance 200 100 - Medications Medications: Current Medications Clopidogrel Bisulfate (Plavix) 75 mg PO DAILY [facility] Last Admin: 07/19/18 09:26 Dose: 75 mg Enoxaparin Sodium (Lovenox) 40 mg SC DAILY [facility] Last Admin: 07/19/18 09:27 Dose: 40 mg Sodium Chloride (Sodium Chloride 0.9%) 1,000 mls @ 100 mls/hr IV .Q10H [facility] Last Admin: 07/19/18 00:06 Dose: 100 mls/hr Losartan Potassium (Cozaar) 50 mg PO DAILY [facility] Last Admin: 07/19/18 09:27 Dose: 50 mg Meclizine HCl (Antivert) 25 mg PO Q8 [facility] Last Admin: 07/19/18 07:12 Dose: 25 mg Rosuvastatin Calcium (Crestor) 10 mg PO HS [facility] Last Admin: 07/18/18 22:00 Dose: 10 mg - Labs Labs: 07/17/18 17:58 07/17/18 17:58 Assessment and Plan - Assessment and Plan (Free Text) Assessment: FOLLOW UP WITH DR PERERA IN HIS OFFICE ------CALL FOR APPOINTMENT FOLLOW UP WITH DR CARDOSO IN HIS OFFICE------CALL FOR APPOINTMENT FOLLOW UP WITH DR FOY IN HIS OFFICE IN ONE MONTH ------CALL FOR APPOINTMENT CONTINUE HOME MEDICATION NEW PRESCRIPTION GIVEN CRESTOR 10 MG PO DAILY PLAVIX 75 MG PO DAILY ONE BLOOD PRESSURE MONITOR STOP OLD MED BENICAR NEW PRESCRIPTION GIVEN ACTIVITY TOLERATED PATIENT DECLINED HOME W SERVICE CALL DR PERERA OR GO TO THE EMERGENCY ROOM IF SYMPTOM RETURN OR WORSENING
--- NOTE | 2018-07-19 13:16 | PN ---
DATE: 07/19/2018 TIME OF EVALUATION: 7:10 a.m. NEUROLOGICAL PROBLEM: Unsteadiness which probably vertebrobasilar insufficiency. PHYSICAL EXAMINATION: VITAL SIGNS: Blood pressure 121/63, mean arterial pressure of 82, respiratory rate 18, temperature 97.7 with pulse rate 64 and regular. The patient is sleeping, arousable on calling her first name. She feels better. No new symptoms from neurological point of view. Her examination which is unchanged compared with my previous examination. Her workup, electroencephalogram been reviewed by me, which is normal for her age. No focal slowing or paroxysmal activities noted. Her hemoglobin A1c is 5.8, cholesterol 209, LDL 140, B12 of 410, homocysteine 10.4, TSH 2.29. RECOMMENDATIONS: The patient is recommended to be on statin and antiplatelets as she has been getting. The recommended further workup is still pending which is on progress. The patient will be followed closely with you. Elias Drew MD
[2018-07-19 13:56] VITALS: BP 132/68; PULSE 85; RESP 20; TEMP 98; O2SAT 98
--- NOTE | 2018-07-19 21:17 | CARD ---
APPROVED REPORT Date of service: 07/17/2018 EKG Measurement Heart [id number] <Conclusion> Normal sinus rhythm Normal ECG
--- NOTE | 2018-07-20 03:18 | PN ---
DATE: 07/19/2018 SUBJECTIVE: The patient underwent an MRI, which is negative. She is still dizzy. She feels better. The patient is responding well to lower doses of blood pressure medication. No nausea or vomiting. No cough. PHYSICAL EXAMINATION: VITAL SIGNS: Blood pressure 132/80, pulse 82, respiratory rate 16, temperature 99. LUNGS: Clear. No rales. No rhonchi. CARDIOVASCULAR SYSTEM: S1 and S2, regular. ABDOMEN: Soft, nontender. Bowel sounds are positive. ASSESSMENT: 1. Benign positional vertigo. 2. Hypertension. 3. Hyperlipidemia. PLAN: Monitor the patient. Waiting echocardiogram. Josh Ryan MD
--- NOTE | 2018-07-20 09:19 | CARD ---
APPROVED REPORT Date of service: 07/18/2018 EXAM: Two-dimensional and M-mode echocardiogram with Doppler and color Doppler. Other Information Quality : GoodRhythm : INDICATION Syncope RISK FACTORS Hypertension Hyperlipidemia 2D DIMENSIONS IVSd0.9 (0.7-1.1cm)Aortic Root (2D)2.5 (2.0-3.7cm) LVDd3.7 (3.9-5.9cm)PWd0.9 (0.7-1.1cm) LA [id number] (18-58mL)LVDs1.8 (2.5-4.0cm) FS (%) 51.6 %LVEF (%)83.5 (>50%) IVC0.00 cm M-Mode DIMENSIONS Left Atrium (MM)3.74 (2.5-4.0cm)IVSd0.73 (0.7-1.1cm) Aortic Root2.89 (2.2-3.7cm)LVDd4.49 (4.0-5.6cm) Aortic Cusp Exc.2.00 (1.5-2.0cm)PWd0.82 (0.7-1.1cm) FS (%) 53 %LVDs2.10 (2.0-3.8cm) LVEF (%)84 (>50%) Mitral Valve MV E Ocdqrago82.3cm/sMV A Zgxbgwcn45.3cm/sE/A ratio0.9 TDI Lateral E' Peak V6.29cm/sMedial E' Peak V9.32cm/sE/Lateral E'9.9 E/Medial E'6.7 Tricuspid Valve TR Peak [id number]/sTR Peak [id number] <Conclusion> Left ventricle: thickness: mild concentric thickening; size: normal; overall ejection fraction: 65%: diastolic filling pressures: normal Mitral valve: annulus: normal: leaflets: normal: excursion: normal; no significant trans-mitral gradient: no significant incompetence: left atrium: normal Aortic valve: leaflets: normal: excursion: normal; no significant trans-aortic gradient: mild incompetence: aortic root: normal Right sided Structures: Pulmonary valve: normal; no significant incompetence; Tricuspid valve: normal; no significant incompetence: Intra-cardiac hemodynamics: pulmonary systolic pressures: 39 mmHg; central venous pressures: normal No pericardial effusion
--- NOTE | 2018-07-20 13:18 | DS ---
DISCHARGE DIAGNOSES: 1. Benign positional vertigo. 2. Hypertension. 3. Hyperlipidemia. HISTORY OF PRESENT ILLNESS: This is a 72-year-old female from [place] with history of hypertension, hyperlipidemia, who is compliant with her diet, medication, and followup. She came in because of dizziness and near syncope. She was admitted to the floor, started on neuro check, fall and seizure precautions and the patient's blood pressure medication was reduced and she underwent MRI, EKG, troponin x3, and the patient did well. She is stable today for discharge. Condition upon discharge is table. DIAGNOSTIC DATA: MRI of the brain, carotid Doppler, CT head is negative. Echocardiogram is pending. The patient is stable. She is for discharge. CONDITION UPON DISCHARGE: Stable. Josh Ryan MD
== END 2018-07-19 13:56 | disposition home or self-care (01) ==
LOC: C.ER 14:04 → C.9E 20:49 → C.9I 07-18 06:36
PROVIDERS: ADMIT Internal Medicine; ATTEND Internal Medicine
DX: G45.0 Vertebro-basilar artery syndrome (principal); H81.10 Benign paroxysmal vertigo, unspecified ear; E78.00 Pure hypercholesterolemia, unspecified; I10 Essential (primary) hypertension; G62.9 Polyneuropathy, unspecified; R27.0 Ataxia, unspecified; R55 Syncope and collapse; M19.90 Unspecified osteoarthritis, unspecified site
CPT/HCPCS: 70450; 70551; 71046; 80053; 80061; 81001; 82607; 82746; 83036; 83090; 84439; 84443; 84484; 85025; 86334; 87070; 93005; 93306; 93880; 95812; 97110; 97116; 97162; 99285; G0378; G8978; G8979; J1650; J7030